=== PATIENT | male | born 1980 | race African-American/Black ===

== ENCOUNTER 2021-02-23 20:25 | Emergency (ER) | payer OTHER ==
[~2021-02-23] VITALS: Ht 165.1 cm; Wt 72.1 kg
[2021-02-23] MEDS ORDERED: NAPROXEN 500 MG TABLET PO ONE (21:00)
[2021-02-23] MEDS ORDERED: predniSONE 20 MG TABLET PO ONE (21:00)
[2021-02-23] MEDS ORDERED: HYDROcodone/APAP 5/325MG 1 TAB TABLET PO ONE (21:00)
[2021-02-23] MEDS ORDERED: CYCLOBENZAPRINE 10 MG TABLET. PO ONE (21:00)
[2021-02-23] MEDS ORDERED: GABAPENTIN 100 MG CAPSULE. PO ONE ×2 (21:00→21:09)
[2021-02-23] MEDS ORDERED: NAPROXEN 500 MG TABLET ONE (21:08)
[2021-02-23] MEDS ORDERED: predniSONE 20 MG TABLET ONE (21:08)
[2021-02-23] MEDS ORDERED: CYCLOBENZAPRINE 10 MG TABLET. ONE (21:09)
[2021-02-23] MEDS ORDERED: HYDROcodone/APAP 5/325MG 1 TAB TABLET ONE (21:10)
[2021-02-23] MEDS ORDERED: CYCL-331 PO (21:11)
[2021-02-23] MEDS ORDERED: GABA-586 PO (21:11)
[2021-02-23] MEDS ORDERED: METH4TAB2 PO (21:11)
[2021-02-23] MEDS ORDERED: DICL50TA2 PO (21:11)
--- NOTE | 2021-02-23 21:11 | PHYS DOC ---
Past History Past Medical History: Sciatica (BERNICE SHELTON APRN) Adult General Chief Complaint Chief Complaint: LOWER BACK PAIN OR INJURY HPI HPI Patient is a 40-year-old male patient with a history of low back surgeries from injury, history of sciatica pain, who presents to the ED today complaining of mild intermittent low back pain lower extremity. States symptoms are chronic but got worse this evening while at work patient after lifting a 5 lb item. He is also complaining of numbness and tingling to bilateral lower extremities which he states is from his sciatic pain he is also complaining of tingling to bilateral upper extremities denies any injuries today. Denies any loss of bowel/bladder function. He states [facility] and his own PCP had sent prednisone to the pharmacy but it will take 2 weeks to get it. (BERNICE SHELTON APRN) Review of Systems Review of Systems Constitutional: Denies fever or chills [] GI: Denies abdominal pain, nausea, vomiting, bloody stools or diarrhea [] : Denies dysuria or hematuria [] Musculoskeletal: Reports low back pain with numbness and tingling to bilateral lower extremity, reports tingling to bilateral upper extremities Integument: Denies rash or skin lesions [] Neurologic: Denies headache, focal weakness or sensory changes [] All other systems were reviewed and found to be within normal limits, except as documented in this note. (BERNICE SHELTON APRN) Current Medications Current Medications Current Medications Medications (Trade) Dose Ordered Sig/Goldy Start Time Stop Time Status Last Admin Dose Admin Acetaminophen/ Hydrocodone Bitart (Lortab 5/325) 1 tab 1X ONCE 02/23/21 21:00 02/23/21 21:01 UNV Cyclobenzaprine HCl (Flexeril) 10 mg 1X ONCE 02/23/21 21:00 02/23/21 21:01 UNV Cyclobenzaprine HCl (Starter Pack - Flexeril 10mg) 1 startpack 1X ONCE 02/23/21 21:15 02/23/21 21:16 UNV Gabapentin (Neurontin) 300 mg 1X ONCE 02/23/21 21:00 02/23/21 21:01 UNV Naproxen (Naprosyn) 500 mg 1X ONCE 02/23/21 21:00 02/23/21 21:01 UNV Prednisone (Prednisone) 60 mg 1X ONCE 02/23/21 21:00 02/23/21 21:01 UNV (BERNICE SHELTON APRN) Physical Exam Physical Exam Constitutional: Well developed, well nourished, no acute distress, non-toxic appearance. [] Skin: Warm, dry, no erythema, no rash. [] Back: Old healed surgical incision noted on the lower lumbar spine, diffuse paraspinal muscle tenderness to bilateral lumbar spine, no midline lumbar spine tenderness, no CVA tenderness. Positive straight leg raise to the left lower extremity at approximately 40 degrees. Extremities: No tenderness, no cyanosis, no clubbing, ROM intact, no edema. [] Neurologic: Alert and oriented X 3, normal motor function, normal sensory function, no focal deficits noted. [] Psychologic: Affect normal, judgement normal, mood normal. [] (BERNICE SHELTON APRN) EKG EKG [address] Berry sinus rhythm HR 61 no STEMI[] (BERNICE SHELTON APRN) Radiology/Procedures Radiology/Procedures [] (BERNICE SEHLTON APRN) Heart Score C/O Chest Pain: N/A Risk Factors: Risk Factors: DM, Current or recent (<one month) smoker, HTN, HLP, family history of CAD, obesity. Risk Scores: Risk Factors: DM, Current or recent (<one month) smoker, HTN, HLP, family history of CAD, obesity. (BERNICE SHELTON APRN) Course & Med Decision Making Course & Med Decision Making Pertinent Labs and Imaging studies reviewed. (See chart for details) This is a 40-year-old male patient presented to the ED today with cervical radiculopathy, low back pain with sciatica. Discharge to home. Encouraged to follow-up with his own PCP for referral to a neurosurgeon [facility] the [facility] (BERNICE SHELTON APRN) Dragon Disclaimer Dragon Disclaimer This electronic medical record was generated, in whole or in part, using a voice recognition dictation system. (BERNICE SHELTON APRN) Departure Departure: Impression: Primary Impression: Back pain Additional Impressions: Sciatica of right side Sciatica of left side Cervical radiculopathy Disposition: HOME / SELF CARE / HOMELESS Condition: STABLE Referrals: PCP,NO (PCP) Please follow-up with your primary care doctor in 1 week Patient Instructions: Cervical Radiculopathy, [id number], Sciatica Additional Instructions: Please call your primary care doctor and set up a follow-up appointment. Scripts Diclofenac Potassium (DICLOFENAC POTASSIUM) 50 Mg Tablet 1 TAB PO BID, #20 TAB Prov: BERNICE SHELTON JAPANESE TUTOR 02/23/21 Gabapentin (GABAPENTIN ) 300 Mg Capsule 300 MG PO TID for NEUROGENIC PAIN, #30 CAP Prov: BERNICE SHELTON JAPANESE TUTOR 02/23/21 Methylprednisolone (MEDROL) 4 Mg Tab.ds.pk 1 PKG PO UD, #1 PKG Prov: BERNICE SHELTON JAPANESE TUTOR 02/23/21 Cyclobenzaprine Hcl (CYCLOBENZAPRINE HCL) 10 Mg Tablet 1 TAB PO TID, #30 TAB Prov: BERNICE SHELTON JAPANESE TUTOR 02/23/21 Attending Signature Attending Signature I have reviewed the PA/TIME STUDY TECHNICIAN's note and plan of care. I was available for consultation as needed during the patient's visit in the emergency department. I agree with the clinical impression, plan, and disposition. (CRISTIAN BERRY DO) Problem Qualifiers Primary Impression: Back pain Back pain location: back pain in unspecified location Chronicity: chronic Back pain laterality: bilateral Qualified Codes: M54.9 - Dorsalgia, unspecified; G89.29 - Other chronic pain BERNICE SHELTON JONATHAN Feb 23, 2021 21:11 CRISTIAN BERRY DO Feb 24, 2021 01:47
[2021-02-23] MEDS ORDERED: CYCLOBENZAPRINE 10MG 4TABLET STARTPACK PO ONE ×2 (21:15→21:22)
[2021-02-23 21:25] VITALS: BP 118/70
--- NOTE | 2021-02-24 00:22 | EKG ---
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
[2021-02-24] MEDS ORDERED: prednisone (00:24)
[2021-02-24] MEDS ORDERED: trazodone (00:24)
[2021-02-24] MEDS ORDERED: zoloft (00:24)
[2021-02-24] MEDS ORDERED: prazosin (00:24)
[2021-02-24] MEDS ORDERED: TERBINAFINE (00:24)
== END 2021-02-23 21:33 | disposition home or self-care (01) ==
LOC: ER 20:25
DX: M54.41 Lumbago with sciatica, right side (principal); M54.42 Lumbago with sciatica, left side; G89.29 Other chronic pain; M54.12 Radiculopathy, cervical region
CPT/HCPCS: 93005; 99284; J7512